=== PATIENT | female | born 1960 | race African-American/Black ===

== ENCOUNTER 2024-03-28 11:30 | Emergency (ER) | payer OTHER ==
[2024-03-28] MEDS ORDERED: IBUPROFEN 600 MG TABLET ONE (12:31)
== END 2024-03-28 14:44 | disposition home or self-care (01) ==
LOC: ER 11:30
DX: S40.012A Contusion of left shoulder, initial encounter (principal); S90.32XA Contusion of left foot, initial encounter; Z79.84 Long term (current) use of oral hypoglycemic drugs; V89.2XXA Person injured in unspecified motor-vehicle accident, traffic, initial encounter; Y93.89 Activity, other specified; Y92.89 Other specified places as the place of occurrence of the external cause; Y99.8 Other external cause status
CPT/HCPCS: 71045; 73030; 73551